=== PATIENT | female | born 1940 | race Caucasian/White ===

== ENCOUNTER 2016-09-17 09:18 | Emergency (ER) | payer MEDICARE, OTHER ==
[~2016-09-17] VITALS: Ht 175.3 cm; Wt 95.5 kg
[~2016-09-17 09:18] MED LIST: ASPI-973 PO; BACL10TA PO; BETA1CAP2 PO; CALC-140 PO; LEVO137T18 PO; METO50TA3 PO; MIRA50TA PO; MULT1CAP33 PO; OMEG1CAP25 PO
[2016-09-17 09:35] VITALS: BP 144/76; PULSE 51; O2SAT 96
--- NOTE | 2016-09-17 09:45 | ED.REPORT ---
HPI-General Illness Date of Service Sep 17, 2016 ED Provider: Dr. Carlos Klein MD A 75 year old male with a history of polycythemia, hemochromatosis and TIA presents to the ED complaining of right knee pain that began just prior to arrival after a ground level fall. Patient states that she tripped and fell onto her right knee. She also reports left thumb pain. Patient is able to ambulate but the pain is exacerbated by walking. She reports that she hit her head but denies current headache. She took 3 ibuprofen with little relief. Patient recently had bronchitis and the flu. She denies LOC. Nursing Notes Stated Complaint: GL FALL/HAND AND KNEE INJURY Chief Complaint: Extremity Trauma Nursing Notes Reviewed: Yes Allergies: Coded Allergies: Penicillins (Verified Allergy, Severe, HIVES, 02/20/16) Sulfa (Sulfonamide Antibiotics) (Verified Allergy, Severe, BREATHING DIFFICULTIES, 02/20/16) oxycodone (Verified Adverse Reaction, Severe, N&V, 02/20/16) Scheduled Aspirin (Aspirin) 81 Mg Tablet 81 MG PO DAILY Baclofen (Baclofen) 10 Mg Tablet 20 MG PO HS Beta-Carotene(A) W-C & E/Min (Antioxidant Softgel) 1 Each Capsule 1 EACH PO DAILY Calcium Carbonate/Vitamin D3 (Calcium + Vitamin D Tablet) 1 Each Tablet 1 EACH PO DAILY Levothyroxine (Levoxyl) 137 Mcg Tablet 137 MCG PO DAILY Metoprolol Tartrate (Metoprolol Tartrate) 50 Mg Tablet 25 MG PO BID Mirabegron ER (Myrbetriq) 50 Mg Tab.er.24h 50 MG PO DAILY Multivitamin (Multivitamins) 1 Each Capsule 1 EACH PO DAILY [place]-3 Fatty Acids/Fish Oil ([place] 3 Fish Oil Softgel) 1 Each Capsule.dr 1 EACH PO DAILY Scheduled PRN Tramadol (Tramadol) 50 Mg Tablet 50 MG PO Q4H PRN PRN For Pain General Time Seen by MD: 09:44 Chief Complaint Other (Right Knee Pain ) Hx Obtained From: Patient Arrived By: Walk-in Sudden in Onset?: Yes Onset Occurred: Just prior to arrival Symptom Duration: Since onset Caused by: Accidental Location: : Hand right: Knee right Quality: Painful Radiation: : Does not radiate Severity: Current: Moderate Severity: Maximum: Moderate Associated with: Reports: Pain on walking, Denies: Inability to bear weight (painful to bear weight ) Pertinent Negative: Pt denies other symptoms Recent Healthcare: Recent doctor visit Past Medical History Past Medical History Polycythemia Hemochromatosis CVA Gastroesphageal Reflux UTI Reports: Coronary artery disease, Hypertension, Transient ischemic attack Reports: Atrial fibrillation, Thyroid disease Past Surgical History InterStim implant to include IPG implantation x2 Smoking History Never Smoker Social History Alcohol Use: Denies alcohol use Drug Use: Denies drug use Other Social History: Good social support, Local resident Ambulatory Status Independent Review of Systems pt reports pain when walking Full Review of Systems Constitutional: Denies: Chills, Fever Respiratory: Denies: Shortness of breath Cardiovascular: Denies: Chest pain GI: Denies: Abdominal pain, Nausea, Vomiting Musculoskeletal: Reports: Joint pain (right knee and right thumb), Joint swelling (right knee and right thumb ) Neurologic: Denies: Change LOC, Headache Complete sys rev & neg: except as marked. Physical Exam Vital Signs Vital Signs Date Time Temp Pulse Resp B/P Pulse Ox O2 Delivery O2 Flow Rate FiO2 09/17/16 14:02 60 16 09/17/16 09:50 18 09/17/16 09:35 36.3 51 144/76 96 Room Air Initial VS: Reviewed Neck: Supple, Non-tender, Full range of motion Skin: Warm, Dry, No cyanosis Neurologic: Alert, Oriented, Nonfocal Psychiatric: Mood/affect normal, Behavior normal, Normal thought content General/Constitutional: Awake, Alert Head / Eyes: Atraumatic, Normocephalic, PERRL Respiratory / Chest: Atraumatic, Breath sounds NL, Breath sounds = bilat Cardiovascular: Heart rate NL, Regular rhythm, Heart sounds NL Upper Extremities Upper Extremity / MS: Atraumatic, No snuffbox tenderness, Neurologic intact, Vascular intact Wrist / Hand: Atraumatic, Neurologic intact, Vascular intact WRIST/HAND: Bruising and tenderness to the left thumb over the MCP joint Lower Extremity / Pelvis / MS: Atraumatic, Neurologic intact, Vascular intact Right Knee: Positive: Swelling present... Trauma / Burn / Environmental: Positive: Abrasion (Abrasion to the left anterior knee) Ankle / Foot: Atraumatic, Neurologic intact, Vascular intact Left Foot: Positive: Tender base 5th mtarsal (Bruising over the 5th metatarsal ), Tenderness present... (Tenderness to the left lateral foot ) Interpretation & Diagnostics X-Ray Interpretation Xray Interpretation: IMPRESSION: Patellar fracture Dictated by: Dante Moraes M.D. on 09/17/2016 at 10:57 X-Ray Ordered: Knee right Interpretation / Wet Read by: Interpret - Radiologist Xray Interpretation: IMPRESSION: Fifth metatarsal base fracture. Dictated by: Dante Moraes M.D. on 09/17/2016 at 10:55 X-Ray Ordered: Foot right Interpretation / Wet Read by: Interpret - Radiologist Xray Interpretation: IMPRESSION: Diffuse left hand osteoarthritis. Severe first MCP joint degeneration. Cortical irregularity involving the distal radius articular surface, although unclear if this is acute or chronic fracture. Recommend clinical correlation to point tenderness, and if needed, follow up radiographs in 10 days could be obtained to evaluate for healing sclerosis Dictated by: Dante Moraes M.D. on 09/17/2016 at 11:01 X-Ray Ordered: Hand left Interpretation / Wet Read by: Carol - Radiologist Procedures Splint Application - Fx Mgt Time: 11:16 Procedure Performed by: Childcare Attendant Post-Procedure / Complications: Cap refill normal, Post splint vascular nl, Post splint neuro nl, Condition improved, Tolerated procedure well, Patient stable Re-Eval/Medical Decision Med Decision/Clinical Course Bilateral lower extremity orthopedic injuries ultimately seems stable to go home. She will be discharged. It should be noted physical therapy was consulted in order to help with ambulation. Patient will follow up with orthopedics Time of Eval: 10:26 Patient Status: Condition improved Re-Evaluation/Progress Note: Patient is rechecked. She is informed of her X-ray results Time of Eval: 11:11 Patient Status: Condition improved Re-Evaluation/Progress Note: Patient is rechecked. She is informed of her diagnosis. All of the patient's questions are addressed. She understands and agrees with the treatment plan. Time of Eval: 11:13 Patient Status: Condition improved Re-Evaluation/Progress Note: Patient is rechecked. Knee immobilizer and Boot are applied patient tolerates well. She expresses concern about mobility and requests a wheelchair. Time of Eval: 13:47 Patient Status: Condition improved Re-Evaluation/Progress Note: Patient is rechecked. DRAWER IN HAND discusses outpatient physical therapy and the patient agrees to the plan. Consultation #1: Referral / Consult Name: Amaury Boyle MD Consulted With: Orthopedic Call Returned at: 11:12 Rug Dry Room Attendant: Agrees with eval, Agrees with plan Consultation #2: Call Returned at: 13:12 Rug Dry Room Attendant: Will see patient, Agrees with juan, Agrees with plan Note: Physical Therapy consulted and asked to come help the patient adjust to the walker and crutches. Counseled Regarding: Diagnosis, Need for follow-up, When/why to return to ED Discharge & Departure Primary Impression: White fracture Encounter type: initial encounter Fracture type: closed Laterality: right Qualified Code: S92.351A - Displaced fracture of fifth metatarsal bone, right foot, initial encounter for closed fracture Additional Impression: Patella fracture Encounter type: initial encounter Fracture type: closed Fracture morphology : unspecified fracture morphology Fracture alignment: displaced Laterality: right Qualified Code: S82.001A - Unspecified fracture of right patella, initial encounter for closed fracture Disposition: Home Discharge Condition All VS Reviewed: Yes Condition: Stable Patient Instructions: Contusion (ED), Foot Fracture in Adults (ED), Patellar Fracture (ED) Additional Instructions: Use Tylenol as needed for pain. Use tramadol for breakthrough pain. Use crutches or a walker at all times. Do not put any weight on your left foot. Use the walking boot at all times. You are able to put weight on your right leg however do not bend your knee and use the knee immobilizer at all times. Follow-up with orthopedics in 1-2 weeks. Return to the ER as needed if worse. Referrals: Kathy Chin MD (PCP) Scribe Attestation Portions of this note were transcribed by Tawny Quintana. I, Dr. Klein personally performed the history, physical exam and medical decision-making; I reviewed and confirmed the accuracy of the information in the transcribed note. Signed by: Tawny Quintana, 09/17/16, 1153. copies to: Kathy Chin MD, Timothy S DO Sep 17, 2016 09:45 TAWNY QUINTANA Sep 17, 2016 09:57
[2016-09-17 09:50] VITALS: RESP 18
--- NOTE | 2016-09-17 10:57 | DRSVH ---
PROCEDURE: X-RAY LEFT FOOT COMPLETE, MINIMUM THREE VIEWS ([id number]) INDICATIONS: TRIP at home foot swollen and painful TECHNIQUE: 3 views of the foot were acquired. COMPARISON: None. FINDINGS: Bones: Transverse fracture at the base of the fifth metatarsal. Plantar and posterior calcaneal spurr ing. Diffuse midfoot spurring Soft tissues: No tibiotalar joint effusion. Achilles tendon appears normal. IMPRESSION: Fifth metatarsal base fracture. Dictated by: Dante Moraes M.D. on 09/17/2016 at 10:55 Approved by: Dante Moraes M.D. on 09/17/2016 at 10:55
--- NOTE | 2016-09-17 10:59 | DRSVH ---
PROCEDURE: X-RAY RIGHT KNEE, THREE VIEWS ([id number]) INDICATIONS: fell onto knee painful TECHNIQUE: 3 views of the knee were acquired. COMPARISON: None. FINDINGS: Bones: Minimally displaced lateral patellar fracture Soft tissues: No joint effusion. No suspicious soft tissue calcifications. IMPRESSION: Patellar fracture Dictated by: Dante Moraes M.D. on 09/17/2016 at 10:57 Approved by: Dante Moraes M.D. on 09/17/2016 at 10:57
--- NOTE | 2016-09-17 11:03 | DRSVH ---
PROCEDURE: X-RAY FINGERS, TWO VIEWS INDICATIONS: Left thumb swollen and painful TECHNIQUE: AP hand, 2 views of the left finger(s) acquired. COMPARISON: [facility], CR, FINGERS 2VW (LT), 11/24/2010, 14:09. FINDINGS: Bones: Cortical irregularity and step off involving the distal radial articular surface although tech nically age-indeterminate No suspicious bony lesions. Diffuse interphalangeal osteoarthritis. There is also severe first MCP j oint degeneration. Surgical resection of the trapezium Soft tissues: No suspicious soft tissue calcifications. IMPRESSION: Diffuse left hand osteoarthritis. Severe first MCP joint degeneration. Cortical irregularity involving the distal radius articular surface, although unclear if this is acut e or chronic fracture. Recommend clinical correlation to point tenderness, and if needed, follow up r adiographs in 10 days could be obtained to evaluate for healing sclerosis Dictated by: Dante Moraes M.D. on 09/17/2016 at 11:01 Approved by: Dante Moraes M.D. on 09/17/2016 at 11:01
[2016-09-17] MEDS ORDERED: TRAM50TA2 PO (11:30)
[2016-09-17 14:02] VITALS: PULSE 60; RESP 16
--- NOTE | 2016-09-17 14:39 | NUR ---
Evaluation completed. Please go to "Notes" then click on "Assessments and Notes" (bottom left corner of screen). Then select appropriate discipline tab on top of screen.
[2016-10-08] MEDS ORDERED: HYDR500C2 PO (11:37)
== END 2016-09-17 14:04 | disposition home or self-care (01) ==
LOC: SED 09:18
DX: S92.351A Displaced fracture of fifth metatarsal bone, right foot, initial encounter for closed fracture (principal); S82.001A Unspecified fracture of right patella, initial encounter for closed fracture; Z86.73 Personal history of transient ischemic attack (TIA), and cerebral infarction without residual deficits; K21.9 Gastro-esophageal reflux disease without esophagitis; I10 Essential (primary) hypertension; E03.9 Hypothyroidism, unspecified; I48.91 Unspecified atrial fibrillation; Z79.82 Long term (current) use of aspirin; I25.10 Atherosclerotic heart disease of native coronary artery without angina pectoris; W01.198A Fall on same level from slipping, tripping and stumbling with subsequent striking against other object, initial encounter; Y93.89 Activity, other specified; Y99.8 Other external cause status; Y92.009 Unspecified place in unspecified non-institutional (private) residence as the place of occurrence of the external cause; Z88.0 Allergy status to penicillin; Z88.2 Allergy status to sulfonamides; Z88.5 Allergy status to narcotic agent
CPT/HCPCS: 73140; 73562; 73630; 97162; 99284; G8978; G8979; G8980